=== PATIENT | female | born 1990 ===

== ENCOUNTER 2020-10-01 03:26 | Emergency (ER) | payer OTHER, SELFPAY ==
[2020-10-01 03:31] VITALS: BP 129/76; PULSE 100; RESP 16; TEMP 36.4; O2SAT 100
--- NOTE | 2020-10-01 04:12 | ED.ABDPAIN ---
HPI - Abdominal Pain General Chief Complaint: Abdominal Pain Stated Complaint: Abd pain Time Seen by Provider: 10/01/20 04:04 Source: patient Mode of arrival: ambulatory Limitations: no limitations History of Present Illness HPI narrative: This is a 30-year-old female without significant past medical history who presents with acute onset of right lower quadrant pain approximately 1 hour ago that is not associated with any fevers, chills, nausea, vomiting, but is having 3 episodes of diarrhea. Otherwise, she denies any urinary pain/ burning /frequency and surgical history is positive for and she reports that she is currently menstruating. Related Data Allergies Allergy/AdvReac Type Severity Reaction Status Date / Time Penicillin Allergy Unknown unknown Uncoded 10/01/20 04:16 aspirin Allergy Unknown unknown Uncoded 10/01/20 04:16 Review of Systems Review of Systems Pertinent positives and negatives as stated in HPI 10 point review of systems is otherwise negative. Physical Exam Vital Signs: Vital Signs: Vital Signs Temp Pulse Resp BP Pulse Ox 10/01/20 04:13 98.2 F 88 18 130/68 100 10/01/20 03:31 97.5 F 100 16 129/76 100 Body Mass Index 33.8 VITAL SIGNS: Reviewed. GENERAL: Well developed, well nourished, in no acute distress. HEAD: Normocephalic/atraumatic, EYES: PERRLA, EOMI intact without pain, no nystagmus/pallor/icterus noted EARS: Ext canals without abnormality, TMs non-bulging and non-erythematous NOSE: Nares patent bilateral OROPHARYNX: no oral lesions noted, posterior pharynx clear and non-erythematous without noted tonsillar enlargement/erythema/exudates NECK: Supple, no adenopathy LUNGS: Normal breath sounds. No adventitious sounds or accessory muscle use. SpO2<100> CARDIOVASCULAR: Regular rate and rhythm without noted murmurs, no JVD or lower extremity edema. ABDOMEN: Soft, Right lower quadrant pain on palpation without rebound, non-distended with bowel sounds. No rigidity. No guarding. No palpable masses or hernias noted MUSCULOSKELETAL: No tenderness, deformities, or effusions noted on gross inspection. EXTREMITIES: No cyanosis, clubbing or edema. SKIN: Inspection of the skin reveals no rashes, ulcerations, jaundice, pallor, or petechiae. NEUROLOGIC: Alert and oriented x 4. Strength and sensation to light touch were grossly intact x 4. Course Course Course Narrative: This is a 30-year-old female with history and clinical presentation most consistent with likely appendicitis and less likely renal colic, ovarian torsion, ectopic . On review of all investigations there is no evidence to suggest ectopic , appendicitis, renal colic. Is suspected that patient may have a component of endometriosis or on further questioning patient states that she has been on a keto diet and then yesterday split urged and had cheese pizza so there is a possibility that patient's diarrhea and gas like symptoms may have contributed to the overall presentation. Patient remains hemodynamically stable, is feeling well without acute findings as stated above. MDM - Abdominal Pain Lab Data Result diagrams: 10/01/20 04:28 10/01/20 04:28 Labs: Lab Results 10/01/20 10/01/20 10/01/20 Range/Units 04:28 04:28 04:40 WBC 7.3 (4.8-10.8) X10*3/uL RBC 4.38 (4.20-5.50) X10*6/uL Hgb 13.2 (12.0-16.0) g/dl Hct 40.4 (37-47) % MCV 92.2 (80-98) fL MCH 30.1 (27.0-33.0) pg MCHC 32.7 (31.0-35.0) g/dl RDW 13.0 (11.0-16.0) % Plt Count 217 (160-400) X10*3/uL MPV 11.2 (9.4-12.3) fL Immature Gran % (Auto) 0.1 (0.0-0.4) % Neut % (Auto) 61.2 (45-73) % Lymph % (Auto) 30.6 (20-40) % Schley % (Auto) 6.7 (2-11) % Eos % (Auto) 1.0 (0-4) % Baso % (Auto) 0.4 (0-2) % Lymph # (Auto) 2.2 (1.2-4.9) X10*3/uL Schley # (Auto) 0.5 (0.1-1.2) X10*3/uL Eos # (Auto) 0.1 (0.0-0.4) X10*3/uL Baso # (Auto) 0.0 (0.0-0.2) X10*3/uL Abs Immat Gran (auto) 0.01 (0.00-0.03) X10*3/uL Absolute Neuts (auto) 4.5 (2.0-8.3) X10*3/uL Absolute Nucleated RBC 0.000 (0.0-0.012) X10*3/uL Nucleated RBC % (auto) 0.0 (0.0-0.2) /100WBC Sodium 139 (135-145) mmol/L Potassium 4.0 (3.3-5.1) mmol/l Chloride 107 (96-108) mmol/L Carbon Dioxide 23 (22-29) mmol/L Anion Gap 13 (12-20) BUN 17 H (9-16) mg/dL Creatinine 0.79 (0.5-1.4) mg/dL Estim Creat Clear Calc 103.6 Estimated GFR > 60 Random Glucose 102 (60-115) mg/dL Calcium 8.1 L (8.4-10.2) mg/dL Total Bilirubin 0.3 (0.0-1.0) mg/dL AST 14 (5-31) U/L ALT 13 (0-31) U/L Alkaline Phosphatase 52 (39-117) U/L Total Protein 6.5 (6.5-8.0) g/dL Albumin 4.0 (3.5-5.0) g/dL Urine Color YELLOW Urine Appearance CLEAR Urine pH 6.0 (5.0-8.0) Ur Specific [place] >= 1.030 H (1.005-1.025) Urine Protein NEG (NEG-TRACE) MG/DL Urine Glucose (UA) NEG (NEG) MG/DL Urine Ketones NEG (NEG) MG/DL Urine Blood 1+ H (NEG) Urine Nitrite NEG (NEG) Ur Leukocyte Esterase NEG (NEG) Urine RBC 1-4 (0) /HPF Urine WBC 0-2 (0-4) /HPF Ur Squamous Epith Cells 1+ /LPF Urine Bacteria NONE /LPF Urine Test NEGATIVE (NEGATIVE) Coronavirus (PCR) (Negative) 10/01/20 Range/Units 04:40 WBC (4.8-10.8) X10*3/uL RBC (4.20-5.50) X10*6/uL Hgb (12.0-16.0) g/dl Hct (37-47) % MCV (80-98) fL MCH (27.0-33.0) pg MCHC (31.0-35.0) g/dl RDW (11.0-16.0) % Plt Count (160-400) X10*3/uL MPV (9.4-12.3) fL Immature Gran % (Auto) (0.0-0.4) % Neut % (Auto) (45-73) % Lymph % (Auto) (20-40) % Schley % (Auto) (2-11) % Eos % (Auto) (0-4) % Baso % (Auto) (0-2) % Lymph # (Auto) (1.2-4.9) X10*3/uL Schley # (Auto) (0.1-1.2) X10*3/uL Eos # (Auto) (0.0-0.4) X10*3/uL Baso # (Auto) (0.0-0.2) X10*3/uL Abs Immat Gran (auto) (0.00-0.03) X10*3/uL Absolute Neuts (auto) (2.0-8.3) X10*3/uL Absolute Nucleated RBC (0.0-0.012) X10*3/uL Nucleated RBC % (auto) (0.0-0.2) /100WBC Sodium (135-145) mmol/L Potassium (3.3-5.1) mmol/l Chloride (96-108) mmol/L Carbon Dioxide (22-29) mmol/L Anion Gap (12-20) BUN (9-16) mg/dL Creatinine (0.5-1.4) mg/dL Estim Creat Clear Calc Estimated GFR Random Glucose (60-115) mg/dL Calcium (8.4-10.2) mg/dL Total Bilirubin (0.0-1.0) mg/dL AST (5-31) U/L ALT (0-31) U/L Alkaline Phosphatase (39-117) U/L Total Protein (6.5-8.0) g/dL Albumin (3.5-5.0) g/dL Urine Color Urine Appearance Urine pH (5.0-8.0) Ur Specific [place] (1.005-1.025) Urine Protein (NEG-TRACE) MG/DL Urine Glucose (UA) (NEG) MG/DL Urine Ketones (NEG) MG/DL Urine Blood (NEG) Urine Nitrite (NEG) Ur Leukocyte Esterase (NEG) Urine RBC (0) /HPF Urine WBC (0-4) /HPF Ur Squamous Epith Cells /LPF Urine Bacteria /LPF Urine Test (NEGATIVE) Coronavirus (PCR) NEGATIVE (Negative) Discharge Plan Discharge Clinical Impression: Abdominal pain Qualifiers: Abdominal location: right lower quadrant Qualified Code(s): R10.31 - Right lower quadrant pain Patient Disposition: Home, Self-Care Instructions: Acute Abdominal Pain (ED) Additional Instructions: May treat pain symptoms with [id number] Tylenol and ibuprofen as directed on the outside packaging. The patient and/or family acknowledge understanding of results (as applicable), diagnosis, treatment plan, need for follow up, and symptoms that should prompt a return to the emergency room. Referrals: Physician,Unknown [Primary Care Provider] - 2 days ( Follow-up right lower quadrant abdominal discomfort) Print Language: Swedish [facility] Past Medical History Source: nursing notes reviewed Medical History (Updated 10/01/20 @ 06:21 by Kathia Grewal MD) No known health problems Social History Social History Alcohol intake: never Smoking Status: Never smoker Use of substances other than those prescribed or required for medical reasons: No Advance Directives: No Advance Directives Information Provided: No
[2020-10-01 04:13] VITALS: BP 130/68; PULSE 88; RESP 18; TEMP 36.8; O2SAT 100; BMI 33.8
[2020-10-01] MEDS: 0.9 % Sodium Chloride 1,000 ML 1000 ML IV (04:36)
[2020-10-01 04:49] LABS: Basophils Percent Auto 0.4 % (0-2); Eosinophils Absolute Auto 0.1 X10*3/uL (0.0-0.4); Hematocrit 40.4 % (37-47); Hemoglobin 13.2 g/dl (12.0-16.0); Imm Gran Abs Auto 0.01 X10*3/uL (0.00-0.03); Imm Gran Pct Auto 0.1 % (0.0-0.4); Lymphocytes Absolute Auto 2.2 X10*3/uL (1.2-4.9); Lymphocytes Percent Auto 30.6 % (20-40); Mean Corpuscular HGB Conc 32.7 g/dl (31.0-35.0); Mean Corpuscular Hemoglobin 30.1 pg (27.0-33.0); Mean Corpuscular Volume 92.2 fL (80-98); Mean Platelet Volume 11.2 fL (9.4-12.3); Monocytes Absolute Auto 0.5 X10*3/uL (0.1-1.2); Monocytes Percent Auto 6.7 % (2-11); Neutrophils Absolute Auto 4.5 X10*3/uL (2.0-8.3); Neutrophils Percent Auto 61.2 % (45-73); Platelet Count 217 X10*3/uL (160-400); Red Blood Count 4.38 X10*6/uL (4.20-5.50); White Blood Count 7.3 X10*3/uL (4.8-10.8)
[2020-10-01 04:51] LABS: Glucose Urine UA NEG (NEG); Leukocyte Esterase Urine NEG (NEG); Nitrite Urine NEG (NEG); Specific Gravity - Urine >= 1.030 (1.005-1.025); Urine Blood 1+ (NEG); Urine Ketones NEG (NEG); Urine Protein NEG (NEG-TRACE)
[2020-10-01 04:51] LABS: MANUAL DIFF FLAG NO
[2020-10-01 04:52] LABS: Appearance Urine CLEAR; Color Urine YELLOW
[2020-10-01 04:53] LABS: UPreg QC Valid YES; Urine Pregnancy NEGATIVE (NEGATIVE)
[2020-10-01 04:59] LABS: Squamous Epithelial Cell Urine 1+ /LPF; WBC Urine 0-2 /HPF (0-4)
[2020-10-01 05:12] LABS: Alanine Aminotransferase 13 U/L (0-31); Alkaline Phosphatase 52 U/L (39-117); Anion Gap 13 (12-20); Aspartate Amino Transferase 14 U/L (5-31); Bilirubin Total 0.3 mg/dL (0.0-1.0); Blood Urea Nitrogen 17 mg/dL (9-16); Calcium 8.1 mg/dL (8.4-10.2); Carbon Dioxide 23 mmol/L (22-29); Chloride 107 mmol/L (96-108); Creatinine Clr Calc Pharmacy 103.6; Estimated Glomerular Filt Rate > 60; Glucose Random 102 mg/dL (60-115); Sodium 139 mmol/L (135-145); Total Protein 6.5 g/dL (6.5-8.0)
--- NOTE | 2020-10-01 05:17 | CT_ITS ---
EXAMINATION: CT ABDOMEN AND PELVIS WITH CONTRAST CLINICAL INFORMATION: Right lower quadrant pain COMPARISON: None TECHNIQUE: Multidetector volumetric images were obtained from the superior aspect of the liver through the pubic symphysis following administration 85 mL ofOmnipaque 350 intravenous contrast. Sagittal and coronal reformatted images were obtained on the technologist's workstation. Oral contrast: No This CT examination was performed using dose optimization techniques as appropriate, variously including the following: *Automated exposure control *Adjustment of mA and/or kV according to patient size (this includes techniques or standardized protocols for targeted exams where dose is matched to indication/reason for exam; i.e. extremities or head) *Use of iterative reconstruction technique DLP: 696 mGy-cm FINDINGS: LUNG BASES: The visualized lung bases are unremarkable. LIVER, GALLBLADDER, AND BILIARY TREE: The liver is normal in size, shape, and attenuation. No focal hepatic lesion or biliary ductal dilatation is present. The gallbladder is unremarkable with no evidence of radiopaque gallstones, gallbladder wall thickening, or obvious pericholecystic inflammatory changes. PANCREAS: Unremarkable. SPLEEN: Unremarkable. ADRENAL GLANDS: Unremarkable. KIDNEYS AND URETERS: The kidneys are normal in size, shape, and attenuation. No hydronephrosis, hydroureter, or calculi seen. No perinephric stranding. BLADDER: Unremarkable. GASTROINTESTINAL TRACT: The stomach is unremarkable. Normal caliber small bowel. No obstruction. Normal appendix. No colonic wall thickening or inflammatory change. No free air or free fluid. ABDOMINAL WALL: No significant hernia is appreciated. LYMPH NODES: Normal. VASCULAR: Unremarkable. PELVIC VISCERA: Anteverted uterus. Calcified lesions at the uterine fundus likely representing fibroids. OSSEOUS STRUCTURES: No acute or suspicious osseous abnormality. CT/CT abdomen pelvis w con IMPRESSION: No acute findings of the abdomen or pelvis. No inflammatory changes. Normal appendix.
[2020-10-01 05:45] LABS: SARS COV2 PCR INHOUSE NEGATIVE (Negative)
[2020-10-01] MEDS: iohexoL 350 MG/ML 100 ML INFUS..BTL 85 ML IV (05:51)
[2020-10-01 06:00] VITALS: BP 115/61; PULSE 82; RESP 18; TEMP 36.9; O2SAT 100
== END 2020-10-01 06:27 | disposition home or self-care (01) ==
PROVIDERS: Emergency Provider Student in an Organized Health Care Education/Training Program
DX: R10.31 Right lower quadrant pain (principal); Z11.59 Encounter for screening for other viral diseases
CPT/HCPCS: 36415; 74177; 80053; 81001; 81025; 85025; 96360; 99284; Q9967; U0003

== ENCOUNTER 2020-10-11 09:42 | Outpatient (REF) | payer MEDICAID, SELFPAY ==
[2020-10-11 12:42] LABS: Hematocrit 41.5 % (37-47); Hemoglobin 13.4 g/dl (12.0-16.0); Mean Corpuscular HGB Conc 32.3 g/dl (31.0-35.0); Mean Corpuscular Hemoglobin 30.2 pg (27.0-33.0); Mean Corpuscular Volume 93.7 fL (80-98); Mean Platelet Volume 11.2 fL (9.4-12.3); Platelet Count 249 X10*3/uL (160-400); Red Blood Count 4.43 X10*6/uL (4.20-5.50); White Blood Count 5.2 X10*3/uL (4.8-10.8)
[2020-10-12 02:52] LABS: CT PCR NOT DETECTED (Not Detect.); NG PCR NOT DETECTED (Not Detect.)
[2020-10-12 09:08] LABS: BV Int Neg Control Negative (Negative); BV Int Pos Control Positive (Positive)
[2020-10-13 18:16] LABS: HPV mRNA E6/E7 rflx Not Detected (Not Detected)
== END 2020-10-11 09:43 | disposition home or self-care (01) ==
LOC: HO.LAB 09:42
PROVIDERS: PCP Internal Medicine; Referring Provider Internal Medicine; Visit Provider Advanced Practice Midwife
DX: Z01.419 Encounter for gynecological examination (general) (routine) without abnormal findings (principal); R10.2 Pelvic and perineal pain; N92.0 Excessive and frequent menstruation with regular cycle; N92.1 Excessive and frequent menstruation with irregular cycle; Z20.2 Contact with and (suspected) exposure to infections with a predominantly sexual mode of transmission
CPT/HCPCS: 36415; 84443; 85027; 87480; 87491; 87510; 87591; 87624; 87625; 87660; 88142

== ENCOUNTER 2020-10-19 13:59 | Outpatient (REF) | payer MEDICAID, SELFPAY ==
--- NOTE | 2020-10-19 14:04 | US_ITS ---
EXAMINATION: ULTRASOUND TRANSVAGINAL, PELVIC COMPLETE CLINICAL INFORMATION: Pelvic and perineal pain. COMPARISON: CT scan of the abdomen and pelvis dated 10/01/2020. TECHNIQUE: Multiple 2-D grayscale and color Doppler transabdominal and transvaginal pelvic ultrasound images were obtained. FINDINGS: Uterus: Anteverted/mildly retroflexed measuring 10.5 x 4.9 x 5.6 cm with a volume of 151 cc. The endometrial stripe measures up to 0.7 cm at the level the fundus without focal abnormality. Several small fibroids are seen. An intramural/subserosal fibroid in the right posterior body measures 1.7 x 0.8 x 1.5 cm. A coarsely calcified intramural fibroid in the anterior fundus measures 1.7 x 1.3 x 1.6 cm. A second coarsely calcified intramural/subserosal fibroid in the right anterior fundus measures 1.8 x 1.6 x 1.8 cm. A smaller noncalcified fibroid in the posterior inferior uterine segment measures 0.8 x 0.5 x 0.8 cm. A smaller subserosal fibroid in the posterior fundus measures 0.7 x 0.6 x 0.8 cm. Right ovary: 4.8 x 2.5 x 2.0 cm with a volume of 12.6 cm. Several small anechoic follicles are seen. Doppler interrogation showed no abnormal vascular flow. Left ovary: 2.1 x 1.7 x 1.9 cm with a volume of 3.6 cm. Small anechoic follicles are seen. Mild adjacent anechoic free fluid is seen. Color Doppler showed no abnormal vascular flow. Urinary bladder: Mildly distended without focal abnormality. US/US pelvic complete IMPRESSION: 1. Anteverted/mildly retroflexed uterus with small calcified and noncalcified fibroids as detailed above. 2. No significant ovarian abnormality. Mild simple free fluid in the left adnexa and likely physiologic.
== END 2020-10-19 14:00 | disposition home or self-care (01) ==
LOC: HO.US 13:59
PROVIDERS: Visit Provider Advanced Practice Midwife
DX: R10.2 Pelvic and perineal pain (principal)
CPT/HCPCS: 76830; 76856

== ENCOUNTER → 2020-11-02 12:05 | Outpatient (BNVA) | payer MEDICAID, SELFPAY | PROVIDERS: Visit Provider Advanced Practice Midwife | DX: Z76.89 Persons encountering health services in other specified circumstances (principal) ==

== ENCOUNTER 2020-11-30 16:53 | Outpatient (REF) | payer MEDICAID, SELFPAY | END 2020-11-30 16:54 | disposition home or self-care (01) | LOC: HO.LAB 16:53 | PROVIDERS: Visit Provider Internal Medicine | DX: Z20.828 Contact with and (suspected) exposure to other viral communicable diseases (principal) | CPT/HCPCS: C9803; U0003 ==

== ENCOUNTER 2020-12-30 09:53 | Outpatient (REF) | payer MEDICAID, SELFPAY ==
--- NOTE | 2020-12-30 | XR_ITS ---
EXAMINATION: XR SHOULDER, RIGHT CLINICAL INFORMATION: Pain COMPARISON: None TECHNIQUE: AP external rotation, Grashey, scapular Y, and axillary views of the right shoulder. FINDINGS: Bone alignment is normal. No fracture or dislocation is seen. Joint spaces are normal. There is soft tissue calcification adjacent to the greater tuberosity suggestive of calcific tendinitis or bursitis. XR/XR shoulder RT min 2V IMPRESSION: Soft tissue calcification adjacent to the greater tuberosity suggestive of calcific tendinitis or bursitis.
== END 2020-12-30 09:54 | disposition home or self-care (01) ==
LOC: HO.XRAY 09:53
PROVIDERS: Absent Provider Internal Medicine; PCP Internal Medicine; Visit Provider Internal Medicine
DX: M25.511 Pain in right shoulder (principal)
CPT/HCPCS: 73030

== ENCOUNTER → 2021-01-17 12:42 | Outpatient (BNVA) | payer MEDICAID, SELFPAY | PROVIDERS: PCP Internal Medicine; Visit Provider Orthopaedic Surgery | DX: M75.41 Impingement syndrome of right shoulder (principal) | CPT/HCPCS: 20610; 99202; J1040 ==

== ENCOUNTER 2021-02-27 07:00 | Outpatient (RCR) | payer MEDICAID, SELFPAY ==
--- NOTE | 2021-02-09 18:16 | MHC.PT.EP ---
[facility] [place] Office [place] Office [place] Office [address] Vitaliy Noble [address] [phone] F: [phone] F: [phone] F: [phone] F: [phone] Physical Therapy Plan of Care Date of Evaluation: 02/09/21 Date of Surgery: N/A Diagnosis: impingement syndrome of R shoulder Assessment: pt presents w/ imaging as well as signs and symptoms consistent w/ rotator cuff calcific tendinitis. pt also presents w/ posturing which may predispose her to impingement tendencies w/ reaching activities. pt presents to physical therapy with pain, decreased range of motion, decreased strength, impaired functional mobility, and impaired postural awareness. pt is a good candidate for skilled PT due to age, potential remediation of impairments, typical disease/condition progression and prognosis, comorbidities, and motivation. pt would benefit from tailored strengthening and stretching exercise program, functional training, gait training, postural re-training, neuromuscular re-education, modalities as needed for pain, equipment safety demonstration. Frequency and Duration: The patient will be seen 2x/wk for 5 wks Short Term Goals: pt will be I w/ HEP to promote self-management of condition. pt will improve B middle trap and rhomboid strength by 1 MMT grade to promote neutral GH joint posture and promote shoulder stability w/ overhead reaching into cabinets. 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 pt will report <1/10 R shoulder pain w/ carrying 15# to facilitate full return to carrying groceries. Treatment Plan: Modalities to reduce pain, spasms and effusion. Manual therapy to restore motion and function. Therapeutic exercise to improve strength and flexibility. Neuromuscular re-education for posture and balance. Therapeutic activities to return to functional activities of daily living. Electronically signed by: Shaniqua Peguero PT, DPT Please sign and return to therapist. Thank you for your referral.
--- NOTE | 2021-03-23 10:20 | MHC.PT.DC ---
[facility] [place] Office [place] Office [place] Office [address] Vitaliy Noble 140 [facility] [phone] F: [phone] F: [phone] F: [phone] F: [phone] Physical Therapy Discharge Report Diagnosis: impingement syndrome of R shoulder Date of Surgery: N/A Date of Evaluation: 02/09/21 Date of Discharge: 03/23/21 Treatments to Date: 4 Cancellations to Date: 1 No Shows to Date: 1 Discharge Status: Recommend MD Follow-up Visit Non-compliance Discharge Summary: The patient has not followed up with any further appointments in approximately one month. She was given a home exercise program including shoulder active assisted range of motion, shoulder stretching, and periscapular stability exercises. Due to visit non-compliance she is being discharged from this physical therapy plan of care at this time. Electronically signed by: Shaniqua Peguero PT, DPT Please sign and return to therapist. Thank you for your referral.
== END 2021-03-23 10:22 | disposition other institution (70) ==
LOC: HO.PT 07:00
PROVIDERS: PCP Internal Medicine; Visit Provider Orthopaedic Surgery
DX: M75.41 Impingement syndrome of right shoulder (principal)
CPT/HCPCS: 97110; 97140; 97161

== ENCOUNTER 2021-03-01 13:32 | Outpatient (REF) | payer MEDICAID, SELFPAY ==
[2021-03-01 15:14] LABS: SARS COV2 PCR INHOUSE NEGATIVE (Negative)
== END 2021-03-01 13:33 | disposition home or self-care (01) ==
LOC: HO.LAB 13:32
PROVIDERS: Visit Provider Internal Medicine
DX: Z20.822 Contact with and (suspected) exposure to COVID-19 (principal)
CPT/HCPCS: C9803; U0003

== ENCOUNTER → 2021-03-13 09:40 | Outpatient (BNVA) | payer MEDICAID, SELFPAY | PROVIDERS: PCP Internal Medicine; Visit Provider Obstetrics & Gynecology | DX: O20.0 Threatened abortion (principal) | CPT/HCPCS: 81025; 99212 ==

== ENCOUNTER 2021-03-17 08:57 | Outpatient (REF) | payer MEDICAID, SELFPAY ==
--- NOTE | ~2021-03-17 | US_ITS ---
EXAMINATION: OBSTETRICAL ULTRASOUND, FIRST TRIMESTER HISTORY: 31-year-old viability LMP: 02/03/2021 COMPARISON: None TECHNIQUE: Real time transabdominal imaging with color and M-mode Doppler. FINDINGS: A single, live IUP CRL of 3.4 mm c/w 6.0wks is noted. Heart Rate: 115 beats per minute. Fibroids: 1.2 x 1.2 x 1.5cm, 0.9 x 1.0 x 1.5 cm both anterior Both maternal ovaries are seen and appear normal. GESTATIONAL AGE: 1. GA from LMP: 6.0 wks 2. GA from AUA: 6.0 wks ESTIMATED DATE OF DELIVERY: 1. MARGARITA from LMP: 11/10/2021 2. MARGARITA from AUA: 11/10/2021 US/US OB pelvic and transvaginal IMPRESSION: A single live IUP CRL is consistent with 6 weeks 0 days giving her an MARGARITA of 11/10/2021 Small anterior uterine fibroids Thank you very much for this referral.
== END 2021-03-17 08:58 | disposition home or self-care (01) ==
LOC: HO.US 08:57
PROVIDERS: Visit Provider Obstetrics & Gynecology
DX: O20.0 Threatened abortion (principal)
CPT/HCPCS: 76801; 76817

== ENCOUNTER → 2021-04-04 13:40 | Outpatient (BNVA) | payer MEDICAID, SELFPAY | PROVIDERS: PCP Internal Medicine; Visit Provider Obstetrics & Gynecology | DX: Z3A.08 8 weeks gestation of pregnancy (principal); R11.2 Nausea with vomiting, unspecified; J30.2 Other seasonal allergic rhinitis | CPT/HCPCS: 99212 ==

== ENCOUNTER 2021-04-06 07:36 | Outpatient (REF) | payer MEDICAID, SELFPAY ==
[2021-04-06 10:09] LABS: MANUAL DIFF FLAG NO
[2021-04-06 10:20] LABS: Basophils Percent Auto 0.4 % (0-2); Eosinophils Absolute Auto 0.1 X10*3/uL (0.0-0.4); Eosinophils Percent Auto 1.6 % (0-4); Hematocrit 38.3 % (37-47); Hemoglobin 12.4 g/dl (12.0-16.0); Imm Gran Abs Auto 0.01 X10*3/uL (0.00-0.03); Imm Gran Pct Auto 0.1 % (0.0-0.4); Lymphocytes Absolute Auto 1.8 X10*3/uL (1.2-4.9); Lymphocytes Percent Auto 26.8 % (20-40); Mean Corpuscular HGB Conc 32.4 g/dl (31.0-35.0); Mean Corpuscular Hemoglobin 30.4 pg (27.0-33.0); Mean Corpuscular Volume 93.9 fL (80-98); Mean Platelet Volume 11.3 fL (9.4-12.3); Monocytes Absolute Auto 0.5 X10*3/uL (0.1-1.2); Monocytes Percent Auto 6.7 % (2-11); Neutrophils Absolute Auto 4.4 X10*3/uL (2.0-8.3); Neutrophils Percent Auto 64.4 % (45-73); Platelet Count 229 X10*3/uL (160-400); Red Blood Count 4.08 X10*6/uL (4.20-5.50); Red Cell Distribution Width 12.9 % (11.0-16.0); White Blood Count 6.9 X10*3/uL (4.8-10.8)
[2021-04-06 10:40] LABS: Glucose 1 Hour PP 50gm Dose 84 mg/dL (60-140)
[2021-04-06 11:08] LABS: HIV AB/AG Nonreactive (Nonreactive); HIV Num 1 0.07 S/CO (0.00-0.99); ~HepC Num1 0.17 S/CO (0.00-0.79); ~Hepatitis C Antibody Nonreactive (Nonreactive)
[2021-04-06 11:13] LABS: Hepatitis B Surface Antigen Negative (Negative)
[2021-04-06 11:18] LABS: Amphetamine Screen Urine Not Detected (Not Detect); Barbiturates, Urine Not Detected (Not Detect); Benzodiazepines Screen Urine Not Detected (Not Detect); Cannabinoid Screen Urine Not Detected (Not Detect); Cocaine Screen Urine Not Detected (Not Detect); Opiate Screen Urine Not Detected (Not Detect); Phencyclidine Screen Urine Not Detected (Not Detect)
[2021-04-07 03:57] LABS: Syphilis Screen Nonreactive (Nonreactive)
[2021-04-07 05:22] LABS: Rubella IgG Antibody 2.92 Index
== END 2021-04-06 07:37 | disposition home or self-care (01) ==
LOC: HO.LAB 07:36
PROVIDERS: PCP Internal Medicine; Visit Provider Obstetrics & Gynecology
DX: Z34.90 Encounter for supervision of normal pregnancy, unspecified, unspecified trimester (principal)
CPT/HCPCS: 80307; 85025; 86762; 86780; 86787; 86803; 86850; 86900; 86901; 87086; 87340; 87389

== ENCOUNTER 2021-04-19 12:56 | Outpatient (REF) | payer MEDICAID, SELFPAY ==
[2021-04-20 06:01] LABS: CT PCR NOT DETECTED (Not Detect.); NG PCR NOT DETECTED (Not Detect.)
== END 2021-04-19 12:57 | disposition home or self-care (01) ==
LOC: HO.LAB 12:56
PROVIDERS: PCP Internal Medicine; Visit Provider Advanced Practice Midwife
DX: O34.219 Maternal care for unspecified type scar from previous cesarean delivery (principal); Z3A.10 10 weeks gestation of pregnancy; Z20.2 Contact with and (suspected) exposure to infections with a predominantly sexual mode of transmission
CPT/HCPCS: 87491; 87591; 99212

== ENCOUNTER 2021-05-05 13:30 | Outpatient (REF) | payer MEDICAID, SELFPAY ==
--- NOTE | ~2021-05-05 | US_ITS ---
EXAMINATION: OBSTETRICAL ULTRASOUND, FIRST TRIMESTER HISTORY: 31-year-old at 13.0 weeks of gestation High BMI Multiple uterine fibroids NT screening COMPARISON: 03/17/2021 TECHNIQUE: Real time transabdominal imaging with color and M-mode Doppler. FINDINGS: A single, live IUP CRL of 75.0 mm c/w 13.5wks is noted. Heart Rate: 153 beats per minute. Normal yolk sac seen. NT was 2.2.mm. NB Present The embryo appears sonographically wnl for this GA. Left ovary is within normal limits. The right was not visible. 3 small fibroids were noted. The largest was seen anteriorly. 1.9 x 1.4 x 1.5 cm. GESTATIONAL AGE: 1. Established GA: 13.0 wks 2. GA from A: 13.5 wks ESTIMATED DATE OF DELIVERY: 1. Established MARGARITA: 11/10/2021 2. MARGARITA from [facility]: 11/05/2021 US/US OB 1T nuc measure add IMPRESSION: 1. A single live IUP 2. CRL consistent with the 13.5 weeks 3. NT of 2.2 mm 4. Small fibroids MFM Consultation: I reviewed the ultrasound findings along with significance of NT measurement. The NT of less than 3mm is generally reassuring. However, the sensitivity for T21 detection is only 60%. I reviewed the availability of serum aneuploidy screening which includes cell-free DNA and placental protein based tests. I discussed the sensitivity, false-positive rate, and other limitations associated with each test. I also reviewed the availability of invasive diagnostic tests that are associated small but definite risk of miscarriage. We also reviewed the differences between screening tests and diagnostic tests. After our discussion, she opted for the First trimester screening that is based on cell-free DNA or non-invasive testing (NIPT). A follow up at 18 weeks for survey has been scheduled. Thank you very much for this referral. Total time 20 minutes. The time spent was devoted to counseling the patient about the disease and diagnosis, coordinating care including reviewing her records, pertinent lab data and studies, as well as discussing diagnostic evaluation and workup, plan therapeutic interventions and future disposition of care. This includes any additional research needed to obtain further information in formulating the plan of care of this patient. This note was generated with a voice recognition program. Please excuse any errors which may have been overlooked during my review of this note. Sometimes these errors may affect the content or meaning of a given sentence.
== END 2021-05-05 13:31 | disposition home or self-care (01) ==
LOC: HO.US 13:30
PROVIDERS: Visit Provider Obstetrics & Gynecology
DX: Z36.82 Encounter for antenatal screening for nuchal translucency (principal); O34.11 Maternal care for benign tumor of corpus uteri, first trimester; D25.9 Leiomyoma of uterus, unspecified; Z3A.13 13 weeks gestation of pregnancy
CPT/HCPCS: 76813; 76814

== ENCOUNTER 2021-05-08 12:46 | Outpatient (REF) | payer MEDICAID, SELFPAY | END 2021-05-08 12:47 | disposition home or self-care (01) | LOC: HO.LAB 12:46 | PROVIDERS: PCP Internal Medicine; Visit Provider Internal Medicine | DX: Z20.822 Contact with and (suspected) exposure to COVID-19 (principal) | CPT/HCPCS: C9803; U0003; U0005 ==

== ENCOUNTER → 2021-05-09 11:14 | Outpatient (BNVA) | payer MEDICAID, SELFPAY | PROVIDERS: Visit Provider Advanced Practice Midwife | DX: O34.219 Maternal care for unspecified type scar from previous cesarean delivery (principal); J30.2 Other seasonal allergic rhinitis; Z3A.13 13 weeks gestation of pregnancy | CPT/HCPCS: 81003; 99212 ==

== ENCOUNTER 2021-05-26 08:49 | Outpatient (REF) | payer MEDICAID, SELFPAY ==
--- NOTE | ~2021-05-26 | US_ITS ---
EXAMINATION: OBSTETRICAL ULTRASOUND, Follow up HISTORY: 31-year-old at the 16.2 weeks of gestation High BMI Abnormal N IPT COMPARISON: 05/05/2021 TECHNIQUE: Real time transabdominal imaging with color and M-mode Doppler. PRESENTATION: Transverse PLACENTA LOCATION: Anterior without previa AMNIOTIC FLUID: Within normal limits MEASUREMENTS: 1. Biparietal Diameter: 83.2 cm; 16.1 wks 2. Head Circumference: 12.6 cm; 16.3 wks 3. Abdominal Circumference: 10.5 cm; 16.4 wks 4. Femur Length: 2.0 cm; 16.0 wks 5. Heart Rate: 155 beats per minute WEIGHT: Estimated weight is 140 grams (0 lbs 5 oz) -- 55 %. survey was not attempted due to early gestational age. No abnormalities were seen in visualized anatomy. GESTATIONAL AGE: 1. Established GA: 3016.2 wks 2. GA from AUA: 16.0 wks ESTIMATED DATE OF DELIVERY: 1. Established MARGARITA: 11/10/2021 2. MARGARITA from [facility]: 11/08/2021 US/US OB follow up IMPRESSION: 1. A single fetus with appropriate interval growth. 2. survey was not attempted. No abnormalities were seen in visualized anatomy. I reviewed the result of N IPT which showed increased risk of triploidy, trisomy 18 and 13. She was informed that the sensitivity and specificity of this screening is unclear. Majority of the triploidy will not go past 20 weeks. The reported detection rate for trisomy 18 and 13 the time of the survey is approximately 80-90%. On today's evaluation, no ultrasound stigmata for trisomy 18 or 13 were noted. However the final decision will need to await the complete survey which is scheduled in approximately 3-4 weeks. I reviewed the limitations of ultrasound in diagnosing aneuploidy and other congenital abnormalities. Amniocentesis was reviewed and she declined. She was informed that the baseline instance of congenital abnormalities and defects in the general population is approximately 3-5%. Not all these conditions are diagnosable in utero. RECOMMENDATIONS: 1. f/u in 3-4 weeks for the survey. Thank you very much for this referral. Total time 30 minutes. The time spent was devoted to counseling the patient about the disease and diagnosis, coordinating care including reviewing her records, pertinent lab data and studies, as well as discussing diagnostic evaluation and workup, plan therapeutic interventions and future disposition of care. This includes any additional research needed to obtain further information in formulating the plan of care of this patient. This note was generated with a voice recognition program. Please excuse any errors which may have been overlooked during my review of this note. Sometimes these errors may affect the content or meaning of a given sentence.
== END 2021-05-26 08:50 | disposition home or self-care (01) ==
LOC: HO.US 08:49
PROVIDERS: Visit Provider Advanced Practice Midwife
DX: Z36.3 Encounter for antenatal screening for malformations (principal)
CPT/HCPCS: 76816

== ENCOUNTER 2021-05-26 10:41 | Outpatient (REF) | payer MEDICAID, SELFPAY | END 2021-05-26 10:42 | disposition home or self-care (01) | LOC: HO.LAB 10:41 | PROVIDERS: PCP Internal Medicine; Visit Provider Internal Medicine | DX: Z20.822 Contact with and (suspected) exposure to COVID-19 (principal) | CPT/HCPCS: C9803; U0003; U0005 ==

== ENCOUNTER → 2021-06-06 14:49 | Outpatient (BNVA) | payer MEDICAID, SELFPAY | PROVIDERS: PCP Internal Medicine; Visit Provider Advanced Practice Midwife | DX: O34.219 Maternal care for unspecified type scar from previous cesarean delivery (principal); Z3A.17 17 weeks gestation of pregnancy | CPT/HCPCS: 81003; 99212 ==

== ENCOUNTER 2021-06-16 12:57 | Outpatient (REF) | payer MEDICAID, SELFPAY ==
--- NOTE | ~2021-06-16 | US_ITS ---
EXAMINATION: US OBSTETRICAL CLINICAL INFORMATION: A 31-year-old at 19.2 weeks of gestation Increased risk of T 21 on N IPT COMPARISON: 05/26/2021 TECHNIQUE: Real-time transabdominal ultrasound was performed using C1-5 megahertz transducer. FINDINGS: A single, active, fetus is seen in vertex presentation. The placenta is posterior without previa, and the amniotic fluid volume is wnl. MEASUREMENTS: 1. Biparietal Diameter: 4.3 cm; 19.1 wks 2. Occipital Frontal Diameter: 5.8 cm 3. Head Circumference: 16.4 cm; 19.1 wks 4. Abdominal Circumference: 13.6 cm; 19.1 wks 5. Femur Length: 2.9 cm; 19.0 wks 6. Humerus Length: 2.8 cm; 19.0 wks 7. Tibia Length: 19/8 cm; 2.6 wks 8. Ulna Length: 2.6 cm; 19.4 wks 9. Lateral ventricle: 0.5 cm 10. Cerebellum: 1.9 cm; 19.2 wks 11. Cisterna Magna: 0.5 cm 12. Nuchal Fold: 4.9 mm 13. Heart Rate: 160 beats per minute Rt ovary: normal Lt ovary: normal Cervical length 4.3 cm on T/A. GESTATIONAL AGE: 1. Established GA: 19.0 wks 2. GA from [facility]: 19.1 wks ESTIMATED DATE OF DELIVERY: 1. Established MARGARITA: 11/10/2021 2. MARGARITA from [facility]: 11/09/2021 ANATOMY: Echogenic intracardiac focus The visualized anatomy includes but not limited to: 1. Cranium: Normal 2. Intracranial anatomy: cavum septum pellucidi, lateral ventricles, choroid plexus, cerebellum, posterior fossa, third and fourth ventricles. 3. face: orbits, lip/palate, profile, nasal bone 4. Heart: Echogenic intracardiac focus, four-chamber view of the heart, ventricular septum, foramen ovale, pulmonary vein, left and right outflow tracts, three-vessel view, 3 vessel trachea view, aortic and ductal arches, situs.. 5. Diaphragm: Normal 6. Abdominal wall: Normal 7. Cord Insertion: Normal 8. Spine: Cervical, thoracic, lumbar, sacral. 9. Stomach: Normal size and shape 10. Right Kidney: Normal 11. Left Kidney: Normal 12. 3 vessel cord: Normal 13. Upper extremity: Open hands, fifth digit. 14. Lower extremity: Tibia, fibula, bilateral feet. 15. Bladder: Normal 16. Genitalia: Male, patient aware US/US OB /maternal detail IMPRESSION: 1. Single, living, intrauterine with appropriate biometry. 2. Echogenic intracardiac focus. 3. Normal amniotic fluid volume DISCUSSION: I reviewed today's ultrasound findings. I reviewed the association between EIF and Down syndrome. The NIPT showed increased risk of Down syndrome. Amniocentesis was discussed and declined. Gave her reassurance that EIF is not a congenital cardiac abnormality. It tends to resolve spontaneously even in children with Down syndrome. She was informed that the baseline incidence of congenital abnormalities is approximately 3-5%. Not all these conditions are diagnosable in utero. RECOMMENDATIONS: 1. Follow-up in approximately 4 weeks (not scheduled). 2. Recommend echocardiography with election supervisor at the [facility]. Thank you for allowing me to participate in her care. Total time 30 minutes. The time spent was devoted to counseling the patient about the disease and diagnosis, coordinating care including reviewing her records, pertinent lab data and studies, as well as discussing diagnostic evaluation and workup, plan therapeutic interventions and future disposition of care. This includes any additional research needed to obtain further information in formulating the plan of care of this patient. This note was generated with a voice recognition program. Please excuse any errors which may have been overlooked during my review of this note. Sometimes these errors may affect the content or meaning of a given sentence.
== END 2021-06-16 12:58 | disposition home or self-care (01) ==
LOC: HO.US 12:57
PROVIDERS: Visit Provider Obstetrics & Gynecology
DX: Z34.92 Encounter for supervision of normal pregnancy, unspecified, second trimester (principal); Z36.3 Encounter for antenatal screening for malformations
CPT/HCPCS: 76811

== ENCOUNTER → 2021-07-04 14:31 | Outpatient (BNVA) | payer MEDICAID, SELFPAY | PROVIDERS: Visit Provider Advanced Practice Midwife | DX: O28.3 Abnormal ultrasonic finding on antenatal screening of mother (principal); Z36.3 Encounter for antenatal screening for malformations; O34.219 Maternal care for unspecified type scar from previous cesarean delivery; Z3A.21 21 weeks gestation of pregnancy | CPT/HCPCS: 99212 ==

== ENCOUNTER 2021-07-07 13:14 | Outpatient (REF) | payer MEDICAID, SELFPAY ==
--- NOTE | ~2021-07-07 | US_ITS ---
EXAMINATION: Echocardiography CLINICAL INFORMATION: 31-year-old 22.0 weeks of gestation Increased risk of Down syndrome on N IPT COMPARISON: 06/16/2021 TECHNIQUE: Real-time transabdominal ultrasound was performed using C1-5 megahertz transducer. FINDINGS: There is a single, living, intrauterine in vertex position. The placenta lies anterior without previa. The amniotic fluid is within normal limits. MEASUREMENTS: 1. Biparietal Diameter: 5.1 cm; 21.3 wks 2. Occipital Frontal Diameter: 6.9 cm 3. Head Circumference: 19.6 cm; 21.6 wks 4. Abdominal Circumference: 16.9 cm; 22.0 wks 5. Femur Length: 3.6 cm; 21.2 wks 6. Heart Rate: 155 beats per minute GESTATIONAL AGE: 1. Assigned GA 22.0 wks 2. 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 Anomalous venous return ruled out. The four-chamber view showed equal sized ventricles and atria. The ventricular septum appeared intact and patent foramen ovale with right to left flow was seen. Tricuspid and mitral valves appear within normal limits as well as the pulmonary and aortic valves. The right outflow tract and in the left outflow tracts are of equal size and correct anatomic relationship. The myocardial contractility appeared within normal limits. No pericardial effusion is seen. US/US OB echo IMPRESSION: 1. Normal, single, living, intrauterine with appropriate biometry. 2. Normal echocardiography. Discussion: I reviewed today's ultrasound findings and gave her reassurance. We discussed the limitations of ultrasound in diagnosing minor valvular problems, small VSD, ASD, and coarctation of aorta. Thank you for allowing me to participate in her care.
--- NOTE | ~2021-07-07 | US_ITS ---
EXAMINATION: Echocardiography CLINICAL INFORMATION: 31-year-old 22.0 weeks of gestation Increased risk of Down syndrome on N IPT COMPARISON: 06/16/2021 TECHNIQUE: Real-time transabdominal ultrasound was performed using C1-5 megahertz transducer. FINDINGS: There is a single, living, intrauterine in vertex position. The placenta lies anterior without previa. The amniotic fluid is within normal limits. MEASUREMENTS: 1. Biparietal Diameter: 5.1 cm; 21.3 wks 2. Occipital Frontal Diameter: 6.9 cm 3. Head Circumference: 19.6 cm; 21.6 wks 4. Abdominal Circumference: 16.9 cm; 22.0 wks 5. Femur Length: 3.6 cm; 21.2 wks 6. Heart Rate: 155 beats per minute GESTATIONAL AGE: 1. Assigned GA 22.0 wks 2. 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 Anomalous venous return ruled out. The four-chamber view showed equal sized ventricles and atria. The ventricular septum appeared intact and patent foramen ovale with right to left flow was seen. Tricuspid and mitral valves appear within normal limits as well as the pulmonary and aortic valves. The right outflow tract and in the left outflow tracts are of equal size and correct anatomic relationship. The myocardial contractility appeared within normal limits. No pericardial effusion is seen. US/US OB follow up IMPRESSION: 1. Normal, single, living, intrauterine with appropriate biometry. 2. Normal echocardiography. Discussion: I reviewed today's ultrasound findings and gave her reassurance. We discussed the limitations of ultrasound in diagnosing minor valvular problems, small VSD, ASD, and coarctation of aorta. Thank you for allowing me to participate in her care.
== END 2021-07-07 13:15 | disposition home or self-care (01) ==
LOC: HO.US 13:14
PROVIDERS: Visit Provider Obstetrics & Gynecology
DX: O28.3 Abnormal ultrasonic finding on antenatal screening of mother (principal); Z36.3 Encounter for antenatal screening for malformations
CPT/HCPCS: 76816; 76825

== ENCOUNTER 2021-07-19 11:00 | Outpatient (REF) | payer MEDICAID, SELFPAY | END 2021-07-19 11:01 | disposition home or self-care (01) | LOC: HO.LAB 11:00 | PROVIDERS: PCP Internal Medicine; Visit Provider Internal Medicine | DX: Z20.822 Contact with and (suspected) exposure to COVID-19 (principal) | CPT/HCPCS: C9803; U0003; U0005 ==

== ENCOUNTER → 2021-08-02 08:47 | Outpatient (BNVA) | payer MEDICAID, SELFPAY | PROVIDERS: Visit Provider Advanced Practice Midwife | DX: O34.219 Maternal care for unspecified type scar from previous cesarean delivery (principal); Z91.89 Other specified personal risk factors, not elsewhere classified; O28.3 Abnormal ultrasonic finding on antenatal screening of mother; Z3A.25 25 weeks gestation of pregnancy | CPT/HCPCS: 81003; 99212 ==

== ENCOUNTER → 2021-08-14 13:47 | Outpatient (REF) | payer MEDICAID, SELFPAY ==
--- NOTE | 2021-08-14 13:52 | ECG_ITS ---
Hook-up date: 2021-08-14 14:04:00 Duration: 25:23:00 Test Indications: PALPITATIONS Medications: [id number] QRS complexes * Ventricular ectopics which represent % of total QRS comp. 15 Supraventricular ectopics which represent <1 % of total QRS comp. * Paced QRS complexs which represent % of total QRS comp. VENTRICULAR ECTOPY * Isolated * Bigeminal Cycles * Couplets * Runs * Beats in Runs * Beats LONGEST at * BPM at :: -- * Beats FASTEST at * BPM at :: -- SUPRAVENTRICULAR ECTOPY 15 Isolated 0 Couplets 0 Runs 0 Beats in Runs * Beats LONGEST at * BPM at :: -- * Beats FASTEST at * BPM at :: -- HEART RATES 66 MIN at 01:14:19 2021-08-15 91 AVG 149 MAX at 11:59:38 2021-08-15 LONGEST RR 1.0160 secs at 01:26:51 2021-08-15 S-T LEVELS Channel 1 - 128 mm at 14:04:00 2021-08-14 - 128 mm at 14:04:00 2021-08-14 Channel 2 - 128 mm at 14:04:00 2021-08-14 - 128 mm at 14:04:00 2021-08-14 Channel 3 - 128 mm at 03:32:31 -- - 128 mm at 03:32:31 Underlying rhythm is sinus; Average ventricular rate 91/min; range 66-149/min; Rare supraventricular ectopy; No sustained arrhythmias; Patient did not report any symptoms in the diary Referred By: Messi Castro Overread By: AMBAR MCDONALD
== END ==
LOC: HO.CARD 13:47
PROVIDERS: Visit Provider Internal Medicine
DX: R00.2 Palpitations (principal)
CPT/HCPCS: 93226

== ENCOUNTER 2021-08-25 08:17 | Outpatient (REF) | payer MEDICAID, SELFPAY ==
[2021-08-25 12:34] LABS: Glucose 1 Hour PP 50gm Dose 74 mg/dL (60-140)
[2021-08-25 12:41] LABS: Hematocrit 34.9 % (37-47); Hemoglobin 11.5 g/dl (12.0-16.0); Mean Corpuscular Hemoglobin 31.3 pg (27.0-33.0); Mean Corpuscular Volume 94.8 fL (80-98); Mean Platelet Volume 11.6 fL (9.4-12.3); Platelet Count 220 X10*3/uL (160-400); Red Blood Count 3.68 X10*6/uL (4.20-5.50); Red Cell Distribution Width 13.2 % (11.0-16.0); White Blood Count 10.3 X10*3/uL (4.8-10.8)
[2021-08-25 13:15] LABS: Syphilis Screen Nonreactive (Nonreactive)
== END 2021-08-25 08:18 | disposition home or self-care (01) ==
LOC: HO.LAB 08:17
PROVIDERS: PCP Internal Medicine; Visit Provider Advanced Practice Midwife
DX: O26.843 Uterine size-date discrepancy, third trimester (principal); O36.63X0 Maternal care for excessive fetal growth, third trimester, not applicable or unspecified; Z3A.29 29 weeks gestation of pregnancy
CPT/HCPCS: 36415; 85027; 86780; 99212

== ENCOUNTER 2021-09-01 12:09 | Outpatient (REF) | payer MEDICAID, SELFPAY ==
--- NOTE | ~2021-09-01 | US_ITS ---
EXAMINATION: OBSTETRICAL ULTRASOUND, Follow up HISTORY: A 31-year-old at the 30.0 weeks of gestation Size date discrepancy COMPARISON: 07/07/2021 TECHNIQUE: Real time transabdominal imaging with color and M-mode Doppler. PRESENTATION: Vertex PLACENTA LOCATION: Anterior without previa AMNIOTIC FLUID: LOBITO 12.2 cm MEASUREMENTS: 1. Biparietal Diameter: 7.5 cm; 30.2 wks 2. Head Circumference: 28.1 cm; 30.6 wks 3. Abdominal Circumference: 24.8 cm; 29.1 wks 4. Femur Length: 5.5 cm; 29.1 wks 5. Heart Rate: 144 beats per minute WEIGHT: EFW: 1373 grams (3 lbs 0 oz) -- 17 %. BIOPHYSICAL PROFILE: Motion: 2 Tone: 2 Breathin Amniotic Fluid: 2 Total score: 8/8 UA Doppler showed SD ratio of 3.5 GESTATIONAL AGE: 1. Established GA: 30.0 wks 2. GA from [facility]: 29.6 wks ESTIMATED DATE OF DELIVERY: 1. Established MARGARITA: 11/10/2021 2. MARGARITA from [facility]: 11/11/2021 US/US OB velocimetry umbilical ar IMPRESSION: 1. A single active fetus is in vertex presentation 2. Size equals dates, EFW corresponds to 17th percentile. This represents slightly less than expected interval growth. 3. Reassuring biophysical profile and normal amniotic fluid index. 4. Normal SD ratio in the umbilical artery I informed the patient that there has been less than expected interval growth. We discussed the limitations of ultrasound and estimating weights. In addition I reviewed the clinical significance of percentile weight ranking. Approximately 80% of the fetuses whose EFW is approximately 10th percentile or less are constitutionally small fetuses who are growing to their full potential. Approximately 20% of the fetuses may be experiencing placental insufficiency. Because of less than expected interval growth, I suggest that she follow-up in approximately 3 weeks. Thank you very much for this referral. Total time 30 minutes. The time spent was devoted to counseling the patient about the disease and diagnosis, coordinating care including reviewing her records, pertinent lab data and studies, as well as discussing diagnostic evaluation and workup, plan therapeutic interventions and future disposition of care. This includes any additional research needed to obtain further information in formulating the plan of care of this patient. This note was generated with a voice recognition program. Please excuse any errors which may have been overlooked during my review of this note. Sometimes these errors may affect the content or meaning of a given sentence.
[2021-09-01 13:44] LABS: Appearance Urine CLEAR; Color Urine YELLOW; Glucose Urine UA NEG (NEG); Leukocyte Esterase Urine NEG (NEG); Nitrite Urine NEG (NEG); Specific Gravity - Urine 1.015 (1.005-1.025); Urine Blood NEG (NEG); Urine Ketones NEG (NEG); Urine Protein NEG (NEG-TRACE)
== END 2021-09-01 12:10 | disposition home or self-care (01) ==
LOC: HO.US 12:09
PROVIDERS: Absent Provider Advanced Practice Midwife; PCP Internal Medicine; Visit Provider Advanced Practice Midwife
DX: O26.843 Uterine size-date discrepancy, third trimester (principal); O36.63X0 Maternal care for excessive fetal growth, third trimester, not applicable or unspecified; Z3A.30 30 weeks gestation of pregnancy
CPT/HCPCS: 76816; 76820; 81003

== ENCOUNTER → 2021-09-07 12:38 | Outpatient (BNVA) | payer MEDICAID, SELFPAY | PROVIDERS: PCP Internal Medicine; Visit Provider Obstetrics & Gynecology | DX: O28.3 Abnormal ultrasonic finding on antenatal screening of mother (principal); O34.219 Maternal care for unspecified type scar from previous cesarean delivery; Z3A.30 30 weeks gestation of pregnancy | CPT/HCPCS: 99212 ==

== ENCOUNTER 2024-06-18 08:50 | Outpatient (REF) | payer MEDICAID, SELFPAY ==
[2024-06-18 14:04] LABS: MANUAL DIFF FLAG NO
[2024-06-18 14:06] LABS: Basophils Percent Auto 0.5 % (0-2); Eosinophils Absolute Auto 0.1 X10*3/uL (0.0-0.4); Eosinophils Percent Auto 1.5 % (0-4); Hemoglobin 12.7 g/dl (12.0-16.0); Imm Gran Abs Auto 0.01 X10*3/uL (0.00-0.03); Imm Gran Pct Auto 0.2 % (0.0-0.4); Lymphocytes Absolute Auto 2.4 X10*3/uL (1.2-4.9); Lymphocytes Percent Auto 37.6 % (20-40); Mean Corpuscular HGB Conc 32.6 g/dl (31.0-35.0); Mean Corpuscular Hemoglobin 30.5 pg (27.0-33.0); Mean Corpuscular Volume 93.5 fL (80.0-98.0); Mean Platelet Volume 11.3 fL (9.4-12.3); Monocytes Absolute Auto 0.4 X10*3/uL (0.1-1.2); Monocytes Percent Auto 6.5 % (2-11); Neutrophils Absolute Auto 3.5 x10*3/uL (2.0-8.3); Neutrophils Percent Auto 53.7 % (45-73); Platelet Count 225 X10*3/uL (160-400); Red Blood Count 4.17 X10*6/uL (4.20-5.50); Red Cell Distribution Width 13.5 % (11.0-16.0); White Blood Count 6.5 X10*3/uL (4.8-10.8)
[2024-06-18 14:25] LABS: Alanine Aminotransferase 13 U/L (0-31); Albumin Level 3.8 g/dL (3.5-5.0); Alkaline Phosphatase 62 U/L (39-117); Anion Gap 13 (12-20); Aspartate Amino Transferase 12 U/L (5-31); Bilirubin Total 0.2 mg/dL (0.0-1.0); Blood Urea Nitrogen 11 mg/dL (9-16); Calcium 8.6 mg/dL (8.4-10.2); Carbon Dioxide 22 mmol/L (22-29); Chloride 108 mmol/L (96-108); Estimated Glomerular Filt Rate > 60; Glucose Random 84 mg/dL (60-115); Iron 55 mcg/dL (30-160); Percent Iron Saturation 18 % (15-50); Potassium 4.3 mmol/L (3.3-5.1); Sodium 139 mmol/L (135-145); Total Iron Binding Capacity 312 mcg/dL (228-428); Total Protein 6.4 g/dL (6.5-8.0); Unsaturated Iron Binding 257 ug/dL
[2024-06-18 14:42] LABS: TSH reflex Free T4 1.72 uIU/mL (0.32-4.0)
[2024-06-18 14:52] LABS: Folate 7.6 ng/mL (> or = 4.0); Vitamin B12 389 pg/mL (200-900)
== END 2024-06-18 08:51 | disposition home or self-care (01) ==
LOC: HO.CHCLDS 08:50
PROVIDERS: Visit Provider Internal Medicine
DX: R53.83 Other fatigue (principal)
CPT/HCPCS: 36415; 80053; 82607; 82746; 83540; 84443; 85025

== ENCOUNTER 2024-10-01 09:02 | Outpatient (AMB) | payer MEDICAID, SELFPAY ==
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
== END 2024-10-01 09:22 | disposition home or self-care (01) ==
LOC: HO.HVS 09:03
PROVIDERS: PCP Internal Medicine; Visit Provider Physician Assistant Surgical
DX: I83.11 Varicose veins of right lower extremity with inflammation (principal); I83.12 Varicose veins of left lower extremity with inflammation
CPT/HCPCS: 99204

== ENCOUNTER → 2024-10-01 09:02 | Outpatient (BNVA) | payer MEDICAID, SELFPAY | PROVIDERS: PCP Internal Medicine; Visit Provider Physician Assistant Surgical | DX: I83.11 Varicose veins of right lower extremity with inflammation (principal); I83.12 Varicose veins of left lower extremity with inflammation | CPT/HCPCS: 99212 ==